=== PATIENT | male | born 1955 | race Caucasian/White ===

== ENCOUNTER 2021-06-09 11:33 | Observation (INO) ==
--- NOTE | 2021-05-01 16:26 | PAT Medication Instructions ---
Medication Instructions Date of Service May 01, 2021 Home Medications acetaminophen 325 mg tablet (Tylenol) 325 mg PO QID PRN albuterol 90 mcg/actuation aerosol inhaler 90 mcg INHALATION UD PRN amlodipine 5 mg tablet 5 mg PO QAM aspirin 81 mg tablet,delayed release 81 mg PO QAM atorvastatin 10 mg tablet 10 mg PO Q3D cetirizine 10 mg tablet 10 mg PO DAILY PRN clorazepate dipotassium 7.5 mg tablet 7.5 mg PO BID PRN fluoxetine 20 mg capsule (Prozac) 20 mg PO QAM ibuprofen 200 mg tablet 200 mg PO Q6H PRN lisinopril 40 mg tablet 40 mg PO QAM montelukast 10 mg tablet 10 mg PO QPM omeprazole 20 mg capsule,delayed release 20 mg PO QAM multivit,Ca,iron,zjd-NO-edfgxxc-zwjhpxp-kbmu-RKRY 3 mg-133 mcg capsule 1 cap PO QAM ondansetron HCl 4 mg tablet 4 mg PO Q8H PRN Continue as directed atorvastatin 10 mg tablet 10 mg PO Q3D ASK your surgeon for instructions ibuprofen 200 mg tablet 200 mg PO Q6H PRN DO NOT take the morning of surgery cetirizine 10 mg tablet 10 mg PO DAILY PRN lisinopril 40 mg tablet 40 mg PO QAM multivit,Ca,iron,kid-TL-nrsvcwo-vuctrvt-ltpz-HJDR 3 mg-133 mcg capsule 1 cap PO QAM Take morning of surgery With a small sip of water, OTHERWISE NOTHING TO EAT OR DRINK AFTER MIDNIGHT: acetaminophen 325 mg tablet (Tylenol) 325 mg PO QID PRN (okay to take up to 4 hours prior to surgery if needed) albuterol 90 mcg/actuation aerosol inhaler 90 mcg INHALATION UD PRN (use if needed; please bring with you to hospital day of surgery if possible) amlodipine 5 mg tablet 5 mg PO QAM aspirin 81 mg tablet,delayed release 81 mg PO QAM fluoxetine 20 mg capsule (Prozac) 20 mg PO QAM omeprazole 20 mg capsule,delayed release 20 mg PO QAM ondansetron HCl 4 mg tablet 4 mg PO Q8H PRN (if needed) clorazepate dipotassium 7.5 mg tablet 7.5 mg PO BID PRN (if needed) Take evening before surgery acetaminophen 325 mg tablet (Tylenol) 325 mg PO QID PRN (if needed) albuterol 90 mcg/actuation aerosol inhaler 90 mcg INHALATION UD PRN (if needed) cetirizine 10 mg tablet 10 mg PO DAILY PRN (if needed) clorazepate dipotassium 7.5 mg tablet 7.5 mg PO BID PRN (if needed) montelukast 10 mg tablet 10 mg PO QPM ondansetron HCl 4 mg tablet 4 mg PO Q8H PRN (if needed) Other Notes If you have any questions please call us at [phone] or [phone] or [phone] or [phone]
--- NOTE | 2021-05-07 11:56 | Anesthesiology Consultation ---
Date of Service May 07, 2021 Assessment & Plan (1) Encounter for pre-operative examination: Chart Review Chart Review: Acceptable Risk for Surgery (pending preop Covid testing results ) and Patient seen in Pre Admission Testing Per PAT appt on 05/07/21, patient denies any recent travel or large group activities. No known Covid positive exposures or Covid related symptoms. No known Covid infection in the past 90 days. Pt is vaccinated for Covid. Preop Covid testing scheduled 06/06/21 = will await results. Educated on importance of self quarantining, social distancing and wearing mask in public for the patient one week prior to surgery and after Covid testing done Pt last seen by cardio 01/31/21= seen for routine follow up on CAD. Nonobstructive CAD by cardiac cath. Undergoing risk factor management. Normal nuclear stress test in June 2020. ECHO from June 2020 also reviewed. Clinically patient is doing well- no indication for further invasive or noninvasive CV testing or procedures at this time. Continue current medications- try to increase Atorvastatin by one pill per week to slowly attempt to taking statin daily (has hx of myalgias). No further cardiovascular recommendations are this time. Pt to follow up in six months Teaching & Discussion Pre-Anesthesia Teaching/Discussion Notes: Instructed NPO after midnight before surgery,except medications with 15 cc of water. Medication instructions provided according to the [facility] guidelines. History Surgery Operation Date: 06/10/21 09:00 Proposed Procedures p Left Total Hip Arthroplasty Anterior - Christian Mills, Height/Weight Height: 5 ft 8 in Weight: 88.6 kg Allergies Allergy/AdvReac Type Severity Reaction Status Date / Time hydromorphone [From Dilaudid] Allergy Unknown pruritus Verified 05/01/21 11:50 Medications Home Medications Medication Instructions Recorded Confirmed Last Taken acetaminophen 325 mg tablet 325 mg PO QID PRN 02/25/21 05/01/21 Unknown (Tylenol) albuterol 90 mcg/actuation aerosol 90 mcg INHALATION UD PRN 02/25/21 05/01/21 Unknown inhaler amlodipine 5 mg tablet 5 mg PO QAM 02/25/21 05/01/21 Unknown aspirin 81 mg tablet,delayed 81 mg PO QAM 02/25/21 05/01/21 Unknown release atorvastatin 10 mg tablet 10 mg PO Q3D 02/25/21 05/01/21 Unknown cetirizine 10 mg tablet 10 mg PO DAILY PRN 02/25/21 05/01/21 Unknown clorazepate dipotassium 7.5 mg 7.5 mg PO BID PRN 02/25/21 05/01/21 Unknown tablet fluoxetine 20 mg capsule (Prozac) 20 mg PO QAM 02/25/21 05/01/21 Unknown ibuprofen 200 mg tablet 200 mg PO Q6H PRN 02/25/21 05/01/21 Unknown lisinopril 40 mg tablet 40 mg PO QAM 02/25/21 05/01/21 Unknown montelukast 10 mg tablet 10 mg PO QPM 02/25/21 05/01/21 Unknown omeprazole 20 mg capsule,delayed 20 mg PO QAM 02/25/21 05/01/21 Unknown release multivit,Ca,iron,gpb-CL-qgrzbsm-filsoqe-sfwo-ZRMS 1 cap PO QAM 05/01/21 05/01/21 Unknown 3 mg-133 mcg capsule ondansetron HCl 4 mg tablet 4 mg PO Q8H PRN 05/01/21 05/01/21 Unknown Past Medical History Medical History (Updated 05/08/21 @ 08:40 by Lorin Anderson PA-C) Anxiety Asthma Rare use of PRN inh Nunez's esophagus Occ reflux/nausea CAD (coronary artery disease) Nonobstructive per cardiac cath Follows with [facility] History of colitis No recent issues HLD (hyperlipidemia) HTN (hypertension) Numbness and tingling Occ to upper and lower extremities - following with PCP Does have cervical and lumbar spine issues Osteoarthritis Prostate cancer Dx Jan 2021; monitoring / under observation Sleep apnea Unable to tolerate CPAP S/p UPPP procedure Exercise / Class Metabolic Activity II 4-5 Yardwork/Stairs/Walk up hill (one flight of stairs - no chest pain or SOB ) Past Family History Family History Other No family history of adverse response to anesthesia Past Surgical History Surgical History H/O palate surgery History of cardiac catheterization x 2 procedures (last was 15-20 years ago [facility]) - no stents History of colonoscopy History of esophagogastroduodenoscopy (EGD) History of foot surgery Left History of lumbar surgery History of prostate biopsy History of tonsillectomy and adenoidectomy Past Anesthesia History No Hx of Anesthesia Complications and No Family Hx of Anesthesia Complications History of PONV No Hx of PONV and Hx of Motion Sickness Social History Smoking Status: Never smoker Do You Dip or Chew Tobacco: No Hx Alcohol Use: No Hx Substance Use: No substance use type: does not use Review of Systems Occ chest discomfort x 20 years - hx of 2 caths- nonobstructive CAD follows with cardi0- cardio aware- had stress test June 2020 (negative). Cardio feels symptoms secondary to GERD per patient. No current issues Patient denies shortness of breath, dyspnea on exertion, reflux, cough, wheezing, palpitations. No hx of seizures, stroke, GA. No hx of blood clots or blood transfusions Physical Exam Vital Signs VITALS BP 131/76 P 64 TEMP 98.0 SP02 96% RESP 16 Constitutional no acute distress ENMT Mouth: no TMJ clicking Thyromental Distance: > or= 3.5 Finger Breadths (3.5) Mallampati Class: I Full upper plate Missing bottom molars Neck + limited neck extension (minimal ) Respiratory normal respiratory effort; no respiratory distress Auscultation: lungs clear to auscultation bilaterally; no wheezes Cardiovascular Rate/Rhythm: regular rate and regular rhythm Heart Sounds: no murmur Vessels: no carotid bruit Musculoskeletal Spine: + pain with cervical ROM (mild ) Extremities: extremities normal to inspection Psychiatric Orientation: alert Lab Results Anesthesia Preop Results Results Anesthesia Widget: WBC 6.86 K/uL (4.8-10.8) 05/07/21 Hgb 14.3 g/dL (14.0-18.0) 05/07/21 Hct 42.3 % (42-52) 05/07/21 Plt 241 K/uL (130-400) 05/07/21 Na 138 mmol/L (136-145) 05/07/21 K 4.0 mmol/L (3.5-5.1) 05/07/21 Cl 105 mmol/L (98-107) 05/07/21 CO2 27 mmol/L (21-32) 05/07/21 BUN 15 mg/dl (6-23) 05/07/21 Creat 0.89 mg/dl (0.6-1.4) 05/07/21 Glucose Level 88 mg/dl (70-99(Fasting)) 05/07/21 PT 10.1 Seconds (9.0-12.0) 05/07/21 PTT 28.4 Seconds (21.0-31.0) 05/07/21 INR 1.0 (0.9-1.1) 05/07/21 Blood Type B Positive 05/07/21 Antibody Screen NEGATIVE 05/07/21 Testing Electrocardiogram Date: 05/07/21 Findings: + SB @ (53bpm) Poor data quality RBBB. Chest X-Ray Date: 05/07/21 Findings: + NAD Echocardiogram Date: 07/17/20 EF: 55-60% LV Function: normal RWMA: + none Other Findings: + LVH (mild) Sclerotic changes to both AV and MV. Trace to at most mild mitral, pulmonic, and tricuspid valvular insufficiency. Stress Test Date: 07/17/20 Type: nuclear Normal myocardial perfusion SPECT images without evidence for pharmacologically induced ischemia. Normal LV wall motion and thickening. Normal LVEF post stress 58%
--- NOTE | 2021-06-05 14:12 | History & Physical Report ---
Date of Service June 05, 2021 Assessment & Plan (1) Degenerative joint disease of left hip: We will proceed with a left anterior total hip arthroplasty. Postoperatively he will be started on aspirin for DVT prophylaxis and kept overnight in the hospital for postoperative medical management. He plans to use home health upon discharge. History of Present Illness Chief Complaint: Osteoarthritis of the left hip . Primary Care Provider: GAYE PCP Isaiah is a pleasant 66-year-old male who is been doing chronic worsening left hip and groin pain. X-rays and clinical examination have been diagnostic for advanced osteoarthritis of the left hip. After failing conservative treatment, he has elected proceed with a left anterior total hip arthroplasty. . Allergies Allergy/AdvReac Type Severity Reaction Status Date / Time hydromorphone [From Dilaudid] Allergy Unknown pruritus Verified 05/01/21 11:50 Home Medications Medication Instructions Recorded Confirmed Type acetaminophen 325 mg tablet 325 mg PO QID PRN 02/25/21 05/01/21 History (Tylenol) albuterol 90 mcg/actuation aerosol 90 mcg INHALATION UD PRN 02/25/21 05/01/21 History inhaler amlodipine 5 mg tablet 5 mg PO QAM 02/25/21 05/01/21 History aspirin 81 mg tablet,delayed 81 mg PO QAM 02/25/21 05/01/21 History release atorvastatin 10 mg tablet 10 mg PO Q3D 02/25/21 05/01/21 History cetirizine 10 mg tablet 10 mg PO DAILY PRN 02/25/21 05/01/21 History clorazepate dipotassium 7.5 mg 7.5 mg PO BID PRN 02/25/21 05/01/21 History tablet fluoxetine 20 mg capsule (Prozac) 20 mg PO QAM 02/25/21 05/01/21 History ibuprofen 200 mg tablet 200 mg PO Q6H PRN 02/25/21 05/01/21 History lisinopril 40 mg tablet 40 mg PO QAM 02/25/21 05/01/21 History montelukast 10 mg tablet 10 mg PO QPM 02/25/21 05/01/21 History omeprazole 20 mg capsule,delayed 20 mg PO QAM 02/25/21 05/01/21 History release multivit,Ca,iron,jip-GK-xbuvrtq-xqdvkjz-umge-PEKM 1 cap PO QAM 05/01/21 05/01/21 History 3 mg-133 mcg capsule ondansetron HCl 4 mg tablet 4 mg PO Q8H PRN 05/01/21 05/01/21 History Past Med/Surg History Medical History Anxiety Asthma Rare use of PRN inh Nunez's esophagus Occ reflux/nausea CAD (coronary artery disease) Nonobstructive per cardiac cath Follows with [facility] History of colitis No recent issues HLD (hyperlipidemia) HTN (hypertension) Numbness and tingling Occ to upper and lower extremities - following with PCP Does have cervical and lumbar spine issues Osteoarthritis Prostate cancer Dx Jan 2021; monitoring / under observation Sleep apnea Unable to tolerate CPAP S/p UPPP procedure Surgical History H/O palate surgery History of cardiac catheterization x 2 procedures (last was 15-20 years ago [facility]) - no stents History of colonoscopy History of esophagogastroduodenoscopy (EGD) History of foot surgery Left History of lumbar surgery History of prostate biopsy History of tonsillectomy and adenoidectomy Family History Other No family history of adverse response to anesthesia Social History Smoking Status: Never smoker Second Hand Exposure: No; Hx Alcohol Use: No Hx Substance Use: No Preferred Language: Turkish Communication Ability: Effective Finisher Accordion Required: No Beliefs That Will Affect Care: None Current Living Situation: Spouse Feels Safe at Home: Yes Assistive Devices: Denture - Upper and Glasses Review of Systems All systems reviewed & are unremarkable except as noted in HPI & below. Physical Exam On physical examination of the left hip, he has decreased range of motion. He has pain with internal and external rotation. Most of his pain is located in his groin. . Constitutional WD/WN, vitals as above Eyes PERRL, conjunctivae normal, anicteric sclerae ENMT external ear and nose normal, oropharynx normal Neck trachea midline, no thyromegaly Respiratory normal respiratory effort Cardiovascular RRR, no murmur, no edema Gastrointestinal (Abdomen) normal bowel sounds, soft, nontender, no hepatosplenomegaly Psychiatric A+Ox3, euthymic affect Results & Data Results & Data Laboratory Results . Diagnostic Findings X-rays of the left hip and pelvis show advanced osteoarthritis with joint space narrowing, osteophyte formation, and [id number] articulation . PG Care Time/CCT Total # of Minutes Spent Total Time Spent with Patient: Total time spent is greater than 50% in coordination of care (as documented) at patient's floor/unit and/or counseling patient: Coding Level of Care Code None Diagnoses Degenerative joint disease of left hip M16.12
[~2021-06-09 11:33] MED LIST: ACETAMINOPHEN 500 MG TAB PO SCH; BUPIVACAINE 0.5 % 5 MG/1 ML PF 10ML VIAL ONE; FAMOTIDINE 20 MG TAB PO SCH; GABAPENTIN 300 MG CAP PO SCH; Ketorolac (*for OR use only*) 30 MG, dexAMETHasone 4 MG, KETAMINE HCL (**OR use only) 1... INFIL SCH; LR 500ML BOLUS, THEN 15ML/HR IV SCH; LR 60ML/HR IV SCH; TRANEXAMIC ACID 1,000 MG **IV Intra-op IV SCH; TRANEXAMIC ACID 1,000 MG **IV Pre-op IV SCH; ceFAZolin 2000MG 2,000 MG/15 ML SYR IV SCH; dexAMETHasone 4 MG TAB PO SCH
--- NOTE | 2021-06-09 13:27 | History & Physical Bridge Note ---
Date of Service June 09, 2021 History & Physical Bridge Note I have examined the patient, reviewed the History & Physical and in the interval since the performance of the History & Physical I have noted the following changes of clinical significance: no changes noted
[2021-06-09] MEDS ORDERED: MIDAZOLAM HCL 1 MG/ML 2ML VIAL ONE ×3 (14:42→16:26)
[2021-06-09] MEDS ORDERED: MoRPHine SULFATE 10 MG/ML CARP/VIAL IV PRN (15:21)
[2021-06-09] MEDS ORDERED: fentaNYL citrate 100 MCG/2 ML VIAL IV PRN (15:21)
[2021-06-09] MEDS ORDERED: ePHEDrine sulfate 50 MG/ML AMP IV PRN (15:21)
[2021-06-09] MEDS ORDERED: MEPERIDINE HCL 25 MG/ML CARP/VIAL IV PRN (15:21)
[2021-06-09] MEDS ORDERED: ONDANSETRON INJ 2 MG/ML 2 ML VIAL IV PRN (15:21)
[2021-06-09] MEDS ORDERED: ATROPINE SULFATE 0.1 MG/ML 10ML SYR IV PRN (15:21)
[2021-06-09] MEDS ORDERED: ORTHO JOINT ANESTHETIC ONE (15:37)
[2021-06-09] MEDS ORDERED: KETAMINE 50 MG/5 ML SYRINGE ONE (16:29)
[2021-06-09] MEDS ORDERED: ePHEDrine sulfate 50 MG/ML AMP ONE (17:27)
[2021-06-09] MEDS ORDERED: PROPOFOL IV EMULSION 10 MG/ML 20 ML VIAL IV ONE (17:27)
[2021-06-09] MEDS ORDERED: LIDOCAINE 2% 2 ML VIAL/AMP(20MG/ML) INFIL ONE (17:27)
--- NOTE | 2021-06-09 17:31 | Fluoroscopy Report ---
FL hip LT 1V CLINICAL HISTORY: Left total hip arthroplasty. COMPARISON STUDY: None. FLUOROSCOPY TIME: 16 seconds. FINDINGS: 3 fluoroscopic spot images of the left hip demonstrate a left total hip arthroplasty. The h ardware is intact. No fracture or dislocation. IMPRESSION: Fluoroscopic assistance provided for a left total hip arthroplasty. ACT 112: Negative or not required by law. Electronically signed by: Tristian Saldivar M.D. 06/09/2021 5:30 PM
--- NOTE | 2021-06-09 17:38 | Operative Report ---
PG Post Operative Report Pre & Post Diagnosis Operation Date: 06/09/21 14:20 Pre-Op Diagnosis: Left Hip Degenerative Joint Disease Post-Op Diagnosis: Left Hip Degenerative Joint Disease I identified the patient and participated in the time-out.: Yes Procedure Operation Date: 06/09/21 14:20 Actual Procedures p Left Anterior Total Hip Arthroplasty, Uncemented(Left) - Christian Mills DO Surgeon Christian Mills, Carry Out Clerk And Shelf Stocker Christian Casper PAC Estimated Blood Loss 350 Findings Consistent with Post-Op Diagnosis Specimens Left femoral head Complications none Disposition Disposition: Recovery Room Indications Isaiah is a pleasant 66-year-old male who is been dealing with chronic increasing left hip and groin pain. X-rays and clinical examination have been diagnostic for advanced osteoarthritis of the left hip. After failing conservative treatment, he elected to proceed with a left total hip arthroplasty. Description of Procedure Implants used I used a [employer]immer[employer]omet total hip arthroplasty system with a size 4 standard offset Avenir Complete stem, a 52mm G7 cup with a 25mm screw, an E1 polyethylene liner, a 36mm ceramic head with a +3.5 neck. Isaiah arrived at the hospital for the above procedure. He was seen in the preoperative holding area and the operative extremity was identified and signed. He was given a spinal anesthetic, a preoperative antibiotic, and TXA. He was then taken back to the operating room and laid on the table in the supine position. He was given basic sedation. The operative leg was secured to a Puristst leg positioner. The hip was then prepped and draped in sterile fashion. A timeout was done and the patient and the operative extremity was properly identified. An anterior approach was used. Dissection was taken down through the fascia and the tensor muscle belly was retracted laterally and the rectus was retracted medially. The circumflex vessels were identified and ligated. The capsule was then incised and tagged for later repair. The femoral neck was then cut and the femoral head was removed. The acetabulum was exposed. Time was spent doing a complete circumferential labral release. Sequential reaming of the acetabulum up to a size 51reamer was done. Final reamings were done under fluoroscopy to ensure appropriate version. A Biomet 52mm G7 cup was then impacted into place. A single 25 mm screw was placed. The E1 polyethylene liner was then snapped into place. Surrounding soft tissues were then injected with 100 cc of an orthopedic pain control cocktail. The proximal femur was then exposed. Sequential broaching up to a size 4 broach was done. Off that broach a size 36 head with a +3.5 neck was trialed. The hip was reduced and fluoroscopic images showed anatomic alignment of the implants in acceptable length. The broach was removed. The final size 4 standard offset Avenir Complete stem was then impacted into place. A ceramic 36mm head with a +3.5 neck was then impacted onto the stem and the hip was reduced. Final fluoroscopic images showed anatomic alignment of the hip. The capsule was then closed with #1 Vicryl suture. A dilute betadyne lavage was then done for 3 minutes. The joint was then irrigated with normal saline solution. The fascia was closed with #1 PDS suture. Skin was closed with 2-0 Vicryl, ariana, and a Silverlon dressing. He was then transferred to a hospital bed and taken to the post anesthesia care unit in stable condition. He tolerated the procedure well. Christian Casper PA-C, was present for the entire procedure. He was critical for patient positioning, prepping, draping, retraction exposure, wound closure and application of sterile dressing. I attest to the content of the Intraoperative Record and any orders documented therein. Any exceptions are noted below.
--- NOTE | 2021-06-09 18:10 | XRay Report ---
AP PELVIS, CROSSTABLE LATERAL LEFT HIP History: Left total hip arthroplasty. Degenerative arthritis. Postop. FINDINGS: The patient is status post a left total hip arthroplasty. The hardware is intact. No fractu re or dislocation. Skin ariana and surgical drains are in place. IMPRESSION: Left total hip arthroplasty. No evidence for hardware complication. ACT 112: Negative or not required by law. Electronically signed by: Tristian Saldivar M.D. 06/09/2021 6:08 PM
--- NOTE | 2021-06-09 18:43 | Anesthesiology Progress Note ---
Date of Service June 09, 2021 Anesthesia Post Procedure Vital Signs Vital Signs: Temp Pulse Pulse Resp BP Pulse Ox 06/09/21 18:30 36.4 C L 62 21 104/63 93 06/09/21 18:20 59 L 12 110/64 95 06/09/21 18:10 68 18 112/69 95 06/09/21 18:00 58 L 14 117/60 97 06/09/21 17:50 63 14 99/66 L 99 06/09/21 17:40 36.3 C L 78 16 100/68 98 06/09/21 12:10 37.2 C 65 18 147/84 H 96 Transfer of Care Handoff Completed per policy Notes Mental Status: alert / awake / arousable Patient Amnestic to Procedure: Yes Nausea / Vomiting: adequately controlled Pain: adequately controlled Airway Patency, RR, SpO2: stable & adequate BP & HR: stable & adequate Hydration State: stable & adequate Neuraxial Anesthesia: was administered and sensory block is resolving Anesthetic Complications: no major complications apparent and Pt Satisfied with anesthetic care
[2021-06-09] MEDS ORDERED: CETIRIZINE HCL 10 MG TABLET PO PRN (19:03)
[2021-06-09] MEDS ORDERED: oxyCODONE/ACETAMINOPHEN 5mg/325mg TAB PO PRN (19:03)
[2021-06-09] MEDS: SODIUM CHLORIDE 0.9% 1000ML 1,000 ML IV SCH (20:05)
[2021-06-09] MEDS: KETOROLAC TROMETHAMINE 15 MG/ML VIAL IV SCH ×2 (20:36→23:47)
[2021-06-09] MEDS: ASPIRIN 81 MG ECTAB PO SCH (20:36)
[2021-06-09] MEDS ORDERED: MONTELUKAST SODIUM 10 MG TABLET PO SCH (21:00)
[2021-06-10] MEDS: KETOROLAC TROMETHAMINE 15 MG/ML VIAL IV SCH ×2 (05:56→11:11)
[2021-06-10] MEDS: SODIUM CHLORIDE 0.9% 1000ML 1,000 ML IV SCH (06:04)
[2021-06-10] MEDS ORDERED: dexAMETHasone 4 MG TAB PO SCH (08:00)
[2021-06-10] MEDS ORDERED: amLODIPine BESYLATE 5 MG TAB PO SCH (09:00)
[2021-06-10] MEDS ORDERED: ATORVASTATIN 10 MG TAB PO SCH (09:00)
[2021-06-10] MEDS ORDERED: lisinopril 40 MG TAB PO SCH (09:00)
[2021-06-10] MEDS ORDERED: FLUoxetine HCL 20 MG CAP PO SCH (09:00)
[2021-06-10] MEDS ORDERED: PANTOprazole 40 MG TAB PO SCH (09:00)
[2021-06-10] MEDS: ASPIRIN 81 MG ECTAB PO SCH (09:18)
--- NOTE | 2021-06-10 10:59 | Orthopedic Progress Note ---
Date of Service June 10, 2021 Assessment & Plan (1) Status post left hip replacement: Overall is doing very well. Is not any much pain in the left hip. He is on aspirin for DVT prophylaxis. He will be seen by physical therapy today for ambulation and range of motion exercises. He can be discharged home later today. He will follow-up with orthopedics in 2 weeks. Radha Richards was seen and examined at bedside this morning. Overall is doing very well. Is not having too much pain in the left hip. He has been up and ambulating to the bathroom. He has no complaints. Review of Systems All systems reviewed & are unremarkable except as noted in HPI & below. Physical Exam On physical examination of his left hip, the dressing is clean and dry. His leg lengths are equal. He has active dorsiflexion plantarflexion of his left ankle.. Results & Data Results & Data Laboratory Results . Diagnostic Findings Postoperative x-rays of the left hip show the prosthesis to be in anatomic alignment without any evidence of fracture, desiccation, or loosening. PG Care Time/CCT Total # of Minutes Spent Total Time Spent with Patient: Total time spent is greater than 50% in coordination of care (as documented) at patient's floor/unit and/or counseling patient: Coding Level of Care Code 20795 Post Operative Follow-Up Diagnoses Status post left hip replacement Z96.642
--- NOTE | 2021-06-10 11:00 | Discharge Summary ---
Date of Service June 10, 2021 Admission HPI (Per Admitting) Isaiah is a pleasant 66-year-old male who is been doing chronic worsening left hip and groin pain. X-rays and clinical examination have been diagnostic for advanced osteoarthritis of the left hip. After failing conservative treatment, he has elected proceed with a left anterior total hip arthroplasty. . Admission Exam (Per Admitting) On physical examination of the left hip, he has decreased range of motion. He has pain with internal and external rotation. Most of his pain is located in his groin. . Principal Diagnosis Same as "Discharge Diagnosis" noted below under Discharge Instructions. Discharge Exam On physical examination of his left hip, the dressing is clean and dry. His leg lengths are equal. He has active dorsiflexion plantarflexion of his left ankle.. Discharge Data Procedures Performed Operation Date: 06/09/21 14:20 Actual Procedures p Left Anterior Total Hip Arthroplasty, Uncemented(Left) - Christian Mills DO Ordered Studies 06/09/21 14:20 FL hip LT 1V Routine Hospital Course (1) Status post left hip replacement: On June 09, 2021 Maurice arrived at [facility] and underwent a left hip replacement without complication. He had a spinal anesthetic. Postoperatively he was started on aspirin for DVT prophylaxis and transferred to the general orthopedic floors. His hospital course was uneventful. On postop day #1 his vital signs were stable and his pain was well controlled. He was able to participate well with physical therapy doing ambulation and range of motion exercises. He was then discharged home. He will follow-up with orthopedics in 2 weeks. PG Care Time/CCT Total # of Minutes Spent Total Time Spent with Patient: Total time spent is greater than 50% in coordination of care (as documented) at patient's floor/unit and/or counseling patient: Discharge Plan Discharge Items Patient Disposition: Home - Home Health Services Reason For Visit: Left Hip Degenerative Joint Disease Discharge Diagnosis: Left hip replacement Activity: As commented below Non-emergency contact: Surgeon Call non-emergency contact if: your wound has increased redness and your wound has increased drainage Follow-up/Referrals: Christian Mills DO [Physician] - 06/24/21 11:40 am Lauren Bardales PA-C [Primary Care Provider] - Diet: Regular Addtl Attending Provider Instructions: Activity and Therapy Recommendations: * If you are using [facility] then therapy will be provided at your home until they feel you have accomplished all of your goals. * If you are using [facility] then Physical Therapy will be provided until they feel you are ready to start Outpatient Physical Therapy. * If you are not using home therapy then Outpatient Physical Therapy should start about 3-5 days from your day of surgery. Therapy will last about 6-10 weeks * You were shown a series of exercises in the hospital. Do these exercises three times each day including the exercises you were shown in physical therapy. * Get up and walk several times each day.~ For the first four weeks, try not to stand or walk for more than one hour at a time. If you do stand or walk for more than one hour, you will not hurt anything, but your leg will likely swell.~~ * As you feel comfortable, you may change from the walker or crutches to a cane and~then to independent walking. Medications: * Narcotic You will likely be sent home from the hospital with a prescription for the narcotic pain medication that worked best throughout your stay. * Aspirin Most patients will be required to take Aspirin 81mg twice a day for 6 weeks after surgery. This is obtained [id number] and a prescription is not necessary. * Other medications may be prescribed for specific circumstances. If you have any questions, please call the office at . * Resume previous home medications unless otherwise instructed TEDs/Elastic Stockings: The white elastic stockings help limit swelling and prevent blood clots from forming in your legs. The more you wear them, the more they work. Wear them for six weeks. Dressing Care: Leave the Silverlon dressing in place for 7 days. After 7 days you may remove the dressing. If the incision is not draining then you may leave the ariana open to air. If there is a little bit of drainage or if the ariana are getting stuck on your clothing then cover the incision with a dry dressing. The ariana will be removed at your 2 week follow-up appointment. Showering: You may shower with the Silverlon dressing in place. Do not let the shower spray hit the dressing directly. Pat the Silverlon dressing dry. If the dressing becomes wet underneath, then simply remove the dressing. Keep the incision dry until you are 7 days out from the day of surgery. After 7 days you may remove the Silverlon dressing and shower with the ariana exposed. Let soapy water run over the ariana and pat them dry. Do not scrub or soak the incision. Things To Watch For: * Drainage from the incision site that occurs more than one week after your surgery. * Increased redness at the incision site. * Fever above 102 degrees Fahrenheit. * Unusual chest pain or shortness of breath. * Call [facility] at with any of the above problems Follow-Up Visit: Follow-up with Dr. Mills's PA (Christian Casper) 2-3 weeks after your day of surgery. He will remove your ariana and answer any questions. If you have any additional questions or concerns, Dr Mills is usually in the office at the same time and will be available An appointment was probably scheduled when you signed-up for surgery in the office. If you have any questions call Office Instructions: More detailed instructions as well as Frequently Asked Questions were provided in a folder by our office when you signed-up for surgery. Please review these instructions when you get home. If you have any further questions or concerns, please feel free to call the office at [phone] Pending Studies at Discharge: No Stand-Alone Forms: [facility], Opioid Pain Management Medications and DC Order Prescriptions: New oxycodone-acetaminophen 5-325 mg tablet 1 tab PO Q6H PRN (Reason: pain) Qty: 30 RF: 0 Continued triamcinolone acetonide 40 mg/mL suspension 80 mg intra-articular ONCE Qty: 2 RF: 0 lisinopril 40 mg tablet 40 mg PO QAM RF: 0 amlodipine 5 mg tablet 5 mg PO QAM RF: 0 montelukast 10 mg tablet 10 mg PO QPM RF: 0 atorvastatin 10 mg tablet 10 mg PO Q3D RF: 0 fluoxetine [Prozac] 20 mg capsule 20 mg PO QAM RF: 0 omeprazole 20 mg capsule,delayed release(DR/EC) 20 mg PO QAM RF: 0 clorazepate dipotassium 7.5 mg tablet 7.5 mg PO BID PRN (Reason: ud) RF: 0 albuterol 90 mcg/actuation aerosol 90 mcg inhalation UD PRN (Reason: sob) RF: 0 ibuprofen 200 mg tablet 200 mg PO Q6H PRN (Reason: Pain) RF: 0 acetaminophen [Tylenol] 325 mg tablet 325 mg PO QID PRN (Reason: Pain) RF: 0 cetirizine 10 mg tablet 10 mg PO DAILY PRN (Reason: Allergy Symptoms) RF: 0 ondansetron HCl [Zofran] 4 mg Tablet 4 mg PO Q8H PRN (Reason: Nausea) RF: 0 Uuks-Anig-Rywow (PABA) 3-133 mg-mcg Capsule 1 cap PO QAM RF: 0 Changed aspirin 81 mg tablet,delayed release (DR/EC) 81 mg PO BID 42 Days Qty: 0 RF: 0 Discharge Orders: Discharge Order (Routine); Ordered 06/10/21 Ordered By: Christian Chen/Other Patient Handouts: Understanding Deep Vein Thrombosis, DVT Post Op Prevention Admission Data Admit Date/Time: 06/09/21 17:45 Attending Provider: Christian Mills Admit Provider: Christian Mills Primary Care Provider: Lauren Bardales Other Interventions: Discharge Summary Assessment (RN) Last Done: 06/10/21 10:13
== END 2021-06-10 12:08 | disposition home health service (06) ==
LOC: 3N 11:33 → ASU 11:33